=== PATIENT | male | born 1965 | race Hispanic/Latino ===

== ENCOUNTER 2017-06-03 06:23 | Emergency (ER) | payer BC ==
[~2017-06-03] VITALS: Ht 170.2 cm; Wt 73.5 kg
--- OUTSIDE RECORDS SUMMARY | 2017-06-03 06:26 | XMS REPORT ---
Author Author [facility] Address Unknown Phone Unavailable Care Team Providers Care Mergers And Acquisitions Banker Name Role Phone STEFANIE FRAGOSO Unavailable Unavailable Problems This patient has no known problems. Allergies, Adverse Reactions, Alerts This patient has no known allergies or adverse reactions. Medications This patient has no known medications. Results Test Description Test Time Test Comments Text Results Atomic Results Result Comments TACROLIMUS LEVEL 2017-03-03 08:50:00 TACROLIMUS BLOOD (BEAKER) (test jcws=842) 5.3 ng/mL 10.0-20.0 BASIC METABOLIC [id number] 01:21:00* Test Item Value Reference Range Comments SODIUM (BEAKER) (test krti=264) 136 meq/L 136-145 POTASSIUM (BEAKER) (test lgze=770) 4.6 meq/L 3.5-5.1 CHLORIDE (BEAKER) (test vpdb=163) 106 meq/L 98-107 CO2 (BEAKER) (test wzjy=888) 22 meq/L 22-29 BLOOD UREA NITROGEN (BEAKER) (test vdlk=372) 26 mg/dL 7-21 CREATININE (BEAKER) (test wmdx=824) 1.41 mg/dL 0.57-1.25 GLUCOSE RANDOM (BEAKER) (test xrjb=079) 112 mg/dL 70-105 CALCIUM (BEAKER) (test eocw=585) 9.8 mg/dL 8.4-10.2 EGFR (BEAKER) (test qtrp=3139) 53 mL/min/1.73 sq m ESTIMATED GFR IS NOT ACCURATE CREATININE CLEARANCE IN PREDICTING GLOMERULAR FILTRATION RATE. ESTIMATED GFR IS NOT APPLICABLE FOR DIALYSIS PATIENTS. CBC W/PLT COUNT & AUTO [id number] 01:04:00* Test Item Value Reference Range Comments WHITE BLOOD CELL COUNT (BEAKER) (test rlbi=507) 6.3 K/ L 3.5-10.5 RED BLOOD CELL COUNT (BEAKER) (test dykb=243) 4.73 M/ L 4.63-6.08 HEMOGLOBIN (BEAKER) (test xnxp=594) 13.9 GM/DL 13.7-17.5 HEMATOCRIT (BEAKER) (test znfa=113) 42.8 % 40.1-51.0 MEAN CORPUSCULAR VOLUME (BEAKER) (test lgrt=205) 90.5 fL 79.0-92.2 MEAN CORPUSCULAR HEMOGLOBIN (BEAKER) (test sagj=095) 29.4 pg 25.7-32.2 MEAN CORPUSCULAR HEMOGLOBIN CONC (BEAKER) (test hnhd=095) 32.5 GM/DL 32.3- 36.5 RED CELL DISTRIBUTION WIDTH (BEAKER) (test nifq=968) 13.5 % 11.6-14.4 PLATELET COUNT (BEAKER) (test ssam=257) 142 K/CU MM 150-450 MEAN PLATELET VOLUME (BEAKER) (test wkrl=199) 11.6 fL 9.4-12.4 NUCLEATED RED BLOOD CELLS (BEAKER) (test yswy=154) 0 /100 WBC 0-0 NEUTROPHILS RELATIVE PERCENT (BEAKER) (test ayos=431) 67 % LYMPHOCYTES RELATIVE PERCENT (BEAKER) (test bzoa=423) 19 % MONOCYTES RELATIVE PERCENT (BEAKER) (test tgya=525) 12 % EOSINOPHILS RELATIVE PERCENT (BEAKER) (test oqoo=534) 1 % BASOPHILS RELATIVE PERCENT (BEAKER) (test momn=661) 1 % NEUTROPHILS ABSOLUTE COUNT (BEAKER) (test lnaf=064) 4.24 K/ L 1.78-5.38 LYMPHOCYTES ABSOLUTE COUNT (BEAKER) (test gpyl=773) 1.19 K/ L 1.32-3.57 MONOCYTES ABSOLUTE COUNT (BEAKER) (test qhdn=011) 0.74 K/ L 0.30-0.82 EOSINOPHILS ABSOLUTE COUNT (BEAKER) (test nwwy=117) 0.07 K/ L 0.04-0.54 BASOPHILS ABSOLUTE COUNT (BEAKER) (test fsjx=175) 0.03 K/ L 0.01-0.08 IMMATURE GRANULOCYTES-RELATIVE PERCENT (BEAKER) (test mhgk=7415) 0 % 0-1
[2017-06-03] MEDS ORDERED: LEVAQUIN500 MG PO (07:52)
[2017-06-03] MEDS ORDERED: SENSIPAR30 MG PO (07:53)
[2017-06-03] MEDS ORDERED: MYFORTIC360 MG (07:53)
[2017-06-03] MEDS ORDERED: TEMAZEPAM15 MG (07:54)
[2017-06-03] MEDS ORDERED: TACROLIMUS1 MG PO (07:54)
[2017-06-03] MEDS ORDERED: OMEPRAZOLE40 MG (07:55)
[2017-06-03] MEDS ORDERED: LIPITOR20 MG (07:55)
[2017-06-03] MEDS ORDERED: LOSARTAN POTASS25 MG (07:55)
[2017-06-03] MEDS ORDERED: BUSPIRONE HCL5 MG PO (08:08)
[2017-06-03 08:33] VITALS: BP 150/80
== END 2017-06-03 08:30 | disposition home or self-care (01) ==
LOC: FSED 06:23
DX: R05 Cough (principal); J30.1 Allergic rhinitis due to pollen; I10 Essential (primary) hypertension
CPT/HCPCS: 99282

== ENCOUNTER 2017-10-13 13:34 | Emergency (ER) | payer BC ==
[~2017-10-13] VITALS: Ht 170.2 cm; Wt 74.8 kg
[~2017-10-13 13:34] MED LIST: BUSPIRONE HCL5 MG PO; LEVAQUIN500 MG PO; LIPITOR20 MG; LOSARTAN POTASS25 MG; MYFORTIC360 MG; OMEPRAZOLE40 MG; SENSIPAR30 MG PO; TACROLIMUS1 MG PO; TEMAZEPAM15 MG
[2017-10-13] MEDS ORDERED: ALBUTEROL0.63 MG/3 INH (14:58)
[2017-10-13] MEDS ORDERED: TESSALON PERLE100 MG PO (14:58)
[2017-10-13 15:06] VITALS: BP 140/72
== END 2017-10-13 15:11 | disposition home or self-care (01) ==
LOC: FSED 13:34
DX: R05 Cough (principal); J02.9 Acute pharyngitis, unspecified
CPT/HCPCS: 71046; 80053; 85025; 99283

== ENCOUNTER 2018-08-27 06:27 | Emergency (ER) | payer BC ==
[~2018-08-27] VITALS: Ht 170.2 cm; Wt 80.7 kg
[~2018-08-27 06:27] MED LIST changes: +ALBUTEROL0.63 MG/3 INH; +TESSALON PERLE100 MG PO
--- OUTSIDE RECORDS SUMMARY | 2018-08-27 06:30 | XMS REPORT | Clinical Summary ---
Author Author 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 Active cinacalcet (SENSIPAR) 30 Take 90 mg by 0 MG tablet mouth daily. Active folic acid (FOLVITE) 1 MG Take 1 mg by 0 tablet mouth daily. Active atorvastatin (LIPITOR) 20 Take 20 mg by 0 MG tablet mouth daily. Active aspirin 81 MG EC tablet Take 81 mg by 0 mouth daily. Active fluticasone-salmeterol Inhale 1 puff 0 (ADVAIR) 250-50 mcg/dose by mouth via diskus inhaler inhaler continuous prn. Active IPRATROPIUM/ALBUTEROL Inhale by 0 SULFATE (COMBIVENT INHL) mouth via inhaler. Active SENSIPAR 90 mg tablet 0 3 Active furosemide (LASIX) 40 MG 40 mg daily. 0 tablet 3 Active temazepam (RESTORIL) 15 Take 15 mg by 0 mg capsule mouth every night as needed for Sleep. Active tamsulosin (FLOMAX) 0.4 Take 0.4 mg 0 mg Cp24 24 hr capsule by mouth daily. Active omeprazole (PRILOSEC) 40 0 MG capsule 5 Active polyethylene glycol 0 (GLYCOLAX) 17 gram/dose 5 powder Active traMADol (ULTRAM) 50 mg 0 tablet 5 Active magnesium oxide (MAG-OX) Take 400 mg 0 400 mg tablet by mouth daily. Active docusate sodium (COLACE) Take 100 mg 0 100 MG capsule by mouth 2 (two) times daily. Active tacrolimus (PROGRAF) 1 MG Take 3 tabs 150 capsule capsule in AM, 2 tabs 5 in PM Active mycophenolate (MYFORTIC) Take 360 mg 0 360 MG TbECIndications: by mouth 2 Prevention of Kidney (two) times Transplant Rejection daily. Active Problems Problem Noted Date Renal contusion, left, initial encounter 03/03/2017 Pyelonephritis, acute 05/09/2014 ESRD (end stage renal disease) HTN (hypertension) Nephrosclerosis ALCL (anaplastic large cell lymphoma) PALOMA (obstructive sleep apnea) Asthma GERD (gastroesophageal reflux disease) Non-ischemic cardiomyopathy Social History Date Tobacco Use Types Packs/Day Years Used Never Smoker Smokeless Tobacco: Never Used Alcohol Use Drinks/Week oz/Week Comments Yes Sex Assigned at Date Recorded Not on file Industry Job Start Date Occupation Not on file Not on file Not on file Travel End Travel History Travel Start No recent travel history available. Last Filed Vital Signs Not on file Plan of Treatment Not on file Results Not on fileafter 08/26/2017 Insurance Payer Benefit Subscriber ID Type Phone Address Plan / Group MEDICARE MEDICARE A xxxxxxxxxx Medicare B BLUE CROSS/BLUE SHIELD BCBS FED xxxxxxxxx O [phone] [address] [place] [address] Advance Directives For more information, please contact: [facility] [address] [place] [address] Date Inactivated Comments Code Status Date Activated 03/03/2017 9:42 PM Full Code 03/03/2017 12:15 AM This code status was determined by: Patient 05/17/2014 3:37 PM Full Code 05/10/2014 12:14 AM This code status was determined by: Patient
== END 2018-08-27 07:13 | disposition home or self-care (01) ==
LOC: FSED 06:27
DX: H10.021 Other mucopurulent conjunctivitis, right eye (principal); Z88.5 Allergy status to narcotic agent; Z88.8 Allergy status to other drugs, medicaments and biological substances
CPT/HCPCS: 99283

== ENCOUNTER 2020-01-10 11:31 | Emergency (ER) | payer BC ==
[~2020-01-10] VITALS: Ht 170.2 cm; Wt 77.4 kg
[2020-01-10] MEDS ORDERED: ASPIRIN 325 MG TAB PO ONE (12:00)
[2020-01-10] MEDS ORDERED: ACETAMINOPHEN 325 MG TAB PO ONE (12:15)
[2020-01-10] MEDS ORDERED: NITROGLYCERIN 2% OINT 1 GM PKT TOP ONE ×2 (12:15→13:00)
[2020-01-10] MEDS ORDERED: FAMOTIDINE 20 MG/2 ML VIAL IV ONE (12:15)
[2020-01-10] MEDS ORDERED: NITROGLYCERIN 2% OINT 1 GM PKT ONE (12:15)
--- OUTSIDE RECORDS SUMMARY | 2020-01-10 12:40 | XMS REPORT | Clinical Summary ---
Author Author [facility] Address Unknown Phone Unavailable Care Team Providers Care Rn On Site Name Role Phone Pcp, No PCP Unavailable [...] (LASIX) 40 MG 40 mg daily. 0 02/10 tablet 3 Active temazepam (RESTORIL) 15 Take [...] 1 MG Take 3 tabs 150 capsule 11 capsule in AM, 2 tabs 5 in PM Additional Information Patient taking differently: 1 mg, Take 2 tabs in AM, 1 tabs in PM, Reported on 03/02/2017 11:58 PM Active mycophenolate (MYFORTIC) Take 360 mg 0 360 MG TbECIndications: by mouth 2 prevention of kidney (two) times transplant rejection daily. Active Problems Problem Noted Date Renal contusion, left, initial encounter 03/03/2017 Pyelonephritis, acute 05/09/2014 ESRD (end stage renal disease) HTN (hypertension) Nephrosclerosis ALCL (anaplastic large cell lymphoma) PALOMA (obstructive sleep apnea) Asthma GERD (gastroesophageal reflux disease) Non-ischemic cardiomyopathy Social History Date Tobacco Use Types Packs/Day Years Used Never Smoker Smokeless Tobacco: Never Used Drinks/Week oz/Week Comments Alcohol Use Yes Sex Assigned at Date Recorded Not on file Last Filed Vital Signs Not on file Plan of Treatment Not on file Results Not on fileafter 01/09/2019 Insurance Type Payer Benefit Subscriber ID Effective Phone Address Plan / Dates Group Medicare MEDICARE MEDICARE A [id number] 2005-P B resent PPO BLUE CROSS/BLUE SHIELD BCBS FED [id number] 2009-P [address] [place] [id number] Advance Directives For more information, please contact: [phone] Date Inactivated Comments Code Status Date Activated 03/03/2017 9:42 PM Full Code 03/03/2017 12:15 AM This code status was determined by: Patient 05/17/2014 3:37 PM Full Code 05/10/2014 12:14 AM This code status was determined by: Patient
--- OUTSIDE RECORDS SUMMARY | 2020-01-10 12:40 | XMS REPORT | Clinical Summary ---
Author Author [facility] Address Unknown Phone Unavailable Care Team Providers Care Tile Finisher Name Role Phone Asked, No Pcp PCP Unavailable Allergies Comments Active Allergy Reactions Severity Noted Date Lisinopril Swelling High 04/24/2012 Morphine Hives, High 01/13/2007 Unknown Reaction, Rash Medications End Date Status Medication Sig Dispensed Refills Start Date Active albuterol (PROAIR HFA) 90 INHALE 1 TO 2 0 02/22 mcg/actuation inhaler PUFFS PO Q 4 9 TO 6 H PRN Active aspirin (ASPIR-LOW) 81 MG Take by 0 09/22 enteric coated tablet mouth. 6 Active busPIRone (BUSPAR) 10 MG Take by 0 05/14 tablet mouth. 6 Active tacrolimus (PROGRAF) 1 MG Take by 0 04/25 capsule mouth. 5 Active temazepam (RESTORIL) 15 Take 15 mg by 0 mg capsule mouth. Active atorvastatin (LIPITOR) 20 Take 1 tablet 0 / MG tablet by mouth. 6 Active omeprazole (PriLOSEC) 40 Take 1 0 03/29 MG capsule capsule by 5 mouth. Active magnesium oxide (MAG-OX) Take 400 mg 0 09/14 400 mg (241.3 mg by mouth. 9 magnesium) tablet Active mycophenolate (MYFORTIC) Take by 0 06/06 360 MG tablet,delayed mouth. 6 release (DR/EC) EC tablet Active valsartan (DIOVAN) 160 MG Take 1 tablet 0 07/24 tablet by mouth. 9 Active Problems Not on file Encounters Care Team Description Date Type Specialty Khari Frausto MD CKD (chronic kidney disease) stage 5, GF R less than 15 ml/min (HCC) (Primary Dx) 05/04/2019 Office Visit Cardiovascular Khari Frausto MD PAD (peripheral artery disease) (HCC) (P rimary Dx) 04/30/2019 Orders Only Cardiovascular Rachel Erazo RN PAD (peripheral artery disease) (HCC) (P rimary Dx) 04/30/2019 Orders Only Cardiovascular Khari Frausto MD Numbness and tingling of right thumb (Pr imary Dx) 04/14/2019 Telephone Cardiovascular after 01/09/2019 Surgical History Surgery Date Site/Laterality Comments AV FISTULA PLACEMENT 03/24/2002 - 03/23/2003 TRANSPLANTATION, KIDNEY 03/24/2014 - 03/23/2015 Medical History Medical History Date Comments Chronic kidney disease Cancer (HCC) Family History Medical History Relation Name Comments Cancer Brother Diabetes Father Hypertension Father Relation Name Status Comments Brother Father Social History Date Tobacco Use Types Packs/Day Years Used Former Smoker Smokeless Tobacco: Never Used Drinks/Week oz/Week Comments Alcohol Use Yes Sex Assigned at Date Recorded Not on file Last Filed Vital Signs Reading Time Taken Comments Vital Sign 187/88 05/04/2019 11:27 AM [facility] Blood Pressure 62 05/04/2019 11:27 AM [facility] Pulse 36.8 C (98.3 F) 05/04/2019 11:27 AM [facility] Temperature - - Respiratory Rate 99% 05/04/2019 11:27 AM [facility] Oxygen Saturation - - Inhaled Oxygen Concentration 77.1 kg (170 lb) 05/04/2019 11:27 AM [facility] Weight 170.2 cm (5' 7") 05/04/2019 11:27 AM [facility] Height 26.63 05/04/2019 11:27 AM [facility] Body Mass Index Plan of Treatment Health Maintenance Due Date Last Done Comments COLONOSCOPY SCREENING 11/06/2015 SHINGLES VACCINES (#1) 11/06/2015 INFLUENZA VACCINE 10/23/2019 Procedures Comments Procedure Name Priority Date/Time Associated Diag nosis US DUPLEX ARTERIAL UPPER Routine 04/30/2019 Numbn ess and tingling of EXTREMITY BILATERAL 2:00 PM [employer] [facility] right thumb after 01/09/2019 Results * Us duplex arterial upper extremity (04/30/2019 2:00 PM [facility] [employer]) Specimen Narrative Performed At [facility] Upper Extremity Arterial Duplex Report [id number] [facility], [place] [address] Pat.Name: GAEL TERRY JR Pat.ID: [id number] St.Date: 04/30/2019 Refer.MD: KHARI FRAUSTO MD Exam Time: 12:41:00 PM Study Type:UE Arterial Age: 8 1965,53Y Sex: MALE Sonogrphr: Mary Fall RN, RVT CPT - 4: 49758 Echo Event ID:[id number] Order ID: [id number] Reason for Study:Numbness and tingling with intermittent discoloration of right thumb. Kidney transplant 2014. Multiple AV access bilateral arms. 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 History of lymphoma at age 25 yrs. SUMMARY: SEGMENTAL PRESSURE: RIGHT LEFT Brachial 152 158 Radial 158 156 Ulnar 167 156 Digit 78 67 DUPLEX SCAN OBSERVATIONS: RIGHT: There is smooth intimal lining i n the subclavian, axillary, brachial, ulnar and radial arteries. There is evidence of a previous AVF at the wrist level of the radial ar nafisa. Colorflow is undisturbed throughout all visualized arteries. PRELIMINARY FINDINGS: 1. No evidence of arterial insuffienc y of the right arm. PHYSICIAN INTERPRETATION: Arterial duplex examination of right upper extremity demonstrates no evidence of arterial occlusive disease. FINDINGS: MEASUREMENTS: DOPPLER Right Axillary Dist Axillary Dist P 72 cm/s Right P Subclavian Subclavian Prox 112 cm/s Right M Ulnar Ulnar Mid PSV 80 cm/s Right D Subclavian Subclavian Dist 116 cm/s Right P Ulnar Ulnar Prox PSV 73 cm/s Right Ulnar Dist 1 Ulnar Dist 1 PS 88 cm/s Right P Brachial Brachial Prox P 83 cm/s Right D Brachial Brachial Dist P 92 cm/s Right Radial Dist 1 Radial Dist 1 P 65 cm/s Right M Brachial Brachial Mid PS 95 cm/s Right Brachial Dist 1 Brachial Dist 1 88 cm/s Right M Radial Radial Mid PSV 73 cm/s Right Radial Dist 2 Radial Dist 2 P 41 cm/s Right D Radial Radial Dist PSV 45 cm/s Right Axillary Prox Axillary Prox P 78 cm/s Right P Radial Radial Prox PSV 63 cm/s Signed 05/01/2019 11:15 AM Satya Mustafa MD, FACS, RPVI Procedure Note Interface, Radiology Results In - 05/01/2019 11:16 AM [facility] Upper Extremity Arterial Duplex Report [id number] [place] [address] Pat.Name: GAEL TERRY Pat.ID: [id number] .Date: 04/30/2019 Refer.MD: KHARI FRAUSTO MD Exam Time: 12:41:00 PM Study Type:UE Arterial Age: 8 1965,53Y Sex: MALE Sonogrphr: Mary Fall RN, RVT CPT - 4: 16989 Echo Event ID:[id number] Order ID: [id number] Reason for Study:Numbness and tingling with intermittent discoloration of right thumb. Kidney transplant 2014. Multiple AV access bilateral arms. 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 History of lymphoma at age 25 yrs. SUMMARY: SEGMENTAL PRESSURE: RIGHT LEFT Brachial 152 158 Radial 158 156 Ulnar 167 156 Digit 78 67 DUPLEX SCAN OBSERVATIONS: RIGHT: There is smooth intimal lining in the subclavian, axillary, brachial, ulnar and radial arteries. There is evidence of a previous AVF at the wrist level of the radial artery. Colorflow is undisturbed throughout all visualized arteries. PRELIMINARY FINDINGS: 1. No evidence of arterial insuffiency of the right arm. PHYSICIAN INTERPRETATION: Arterial duplex examination of right upper extremity demonstrates no evidence of arterial occlusive disease. FINDINGS: MEASUREMENTS: DOPPLER Right Axillary Dist Axillary Dist P 72 cm/s Right P Subclavian Subclavian Prox 112 cm/s Right M Ulnar Ulnar Mid PSV 80 cm/s Right D Subclavian Subclavian Dist 116 cm/s Right P Ulnar Ulnar Prox PSV 73 cm/s Right Ulnar Dist 1 Ulnar Dist 1 PS 88 cm/s Right P Brachial Brachial Prox P 83 cm/s Right D Brachial Brachial Dist P 92 cm/s Right Radial Dist 1 Radial Dist 1 P 65 cm/s Right M Brachial Brachial Mid PS 95 cm/s Right Brachial Dist 1 Brachial Dist 1 88 cm/s Right M Radial Radial Mid PSV 73 cm/s Right Radial Dist 2 Radial Dist 2 P 41 cm/s Right D Radial Radial Dist PSV 45 cm/s Right Axillary Prox Axillary Prox P 78 cm/s Right P Radial Radial Prox PSV 63 cm/s Signed 05/01/2019 11:15 AM Satya Mustafa MD, FACS, RPVI Performing Organization Address City/State/ZIP Code [facility] [address] [place] [address] after 01/09/2019 Insurance Type Payer Benefit Subscriber ID Effective Phone Address Plan / Dates Group PPO BCBS BCBS [id number] 2009-P CHOICE [employer]ory PPO/[place]ILTON [place] PPO [phone] Advance Directives For more information, please contact: [phone] Patient Electrician Wiring Explanation Type Date Recorded Advance Directives, Living Will and Medical Power of Poultry Feed Supervisor
--- OUTSIDE RECORDS SUMMARY | 2020-01-10 12:40 | XMS REPORT | Continuity of Care Document ---
Author Author [facility] t Organization [facility] Address 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 Problems Condition Name Condition Details Condition Category Status Onset Date Resolution Date Last Treatment Date Treating Clinician Comments Source Renal contusion, left, initial encounter Renal contusi on, left, initial encounter Disease Active 2017-03-03 00:00:00 I [facility] Pyelonephritis, acute Pyelonephritis, acute Disease Active 201 07-24-15 00:00:00 [facility] ESRD (end stage renal disease) ESRD (end stage renal disease) Disease Active [facility] HTN (hypertension) HTN (hypertension) Disease Active [facility] Nephrosclerosis Nephrosclerosis Disease Active [facility] ALCL (anaplastic large cell lymphoma) ALCL (anaplastic large cell lymphoma) Disease Active [facility] PALOMA (obstructive sleep apnea) PALOMA (obstructive sleep apnea) Disease Active [facility] Asthma Asthma Disease Active [facility] GERD (gastroesophageal reflux disease) GERD (gastroesophagea l reflux disease) Disease Active [facility] Non-ischemic cardiomyopathy Non-ischemic cardiomyopathy Disease Active [facility] Allergies, Adverse Reactions, Alerts Allergy Name Allergy Type Status Severity Reaction(s) Onset Date Inacti ve Date Treating Clinician Comments Source Lisinopril Allergy to Substance Active Severe ANAPHYLAXIS 2017-06-03 0 0:00:00 [facility] Morphine Allergy to Substance Active Moderate HIVES 2017-06-03 00:00:00 [facility] Lisinopril Drug Allergy Active Swelling 2012-04-24 00:00:00 [facility] Morphine Drug Allergy Active Hives 2012-04-24 00:00:00 [facility] Lisinopril Propensity to adverse reactions to drug Active Swelling 2012-04-24 00:00:00 Ji ochoa Morphine Propensity to adverse reactions to drug Active Hives, Unknown Reaction, Rash 2007-01-13 00:00:00 Josef Valdez Family History Family Member Diagnosis Comments Start Date Stop Date Source Natural brother Cancer [facility] ethodist Natural father Diabetes [facility] thodist Natural father Hypertension Ji Valdez Social History Social Habit Start Date Stop Date Quantity Comments Source Sex Assigned At Elias Valdez Tobacco use and exposure 2019-05-04 00:00:00 2019-05-04 00:00:00 Christel smith used Ji Valdez Alcohol intake 2019-05-04 00:00:00 2019-05-04 00:00:00 Current drinker of alcohol (finding) Ji Valdez Smoking Status Start Date Stop Date Source Former smoker 2019-05-04 00:00:00 2019-05-04 00:00:00 Ji Valdez Never smoker [facility] Medications Ordered Medication Name Filled Medication Name Start Date Stop Da te Current Medication? Ordering Clinician Indication Dosage Frequency Signature (SIG) Comments Components Source temazepam (RESTORIL) 15 mg capsule 2019-05-04 11:30:14 Yes 15mg Take 15 mg by mouth. Ji Valdez albuterol (PROAIR HFA) 90 mcg/actuation inhaler 2019-03-19 00:00 :00 Yes INHALE 1 TO 2 PUFFS PO Q 4 TO 6 H PRN Ji Valdez magnesium oxide (MAG-OX) 400 mg (241.3 mg magnesium) tablet 2018-09-14 00:00:00 Yes 400mg Take 400 mg by mouth. Ji Valdez valsartan (DIOVAN) 160 MG tablet 2018-08-21 00:00:00 Yes 1{tbl} Take 1 tablet by mouth. Ji Valdez Albuterol Sulfate 0.63 Mg/3 Ml Vial.[facility] Albuterol Sulfate 0. 63 Mg/3 Ml Vial.neb 2017-10-13 00:00:00 Yes Earnest Salguero Md 2 Every 4 Hours as needed for Cough [facility] Benzonatate (Tessalon Perle) 100 Mg Capsule Benzonatat e (Tessalon Perle) 100 Mg Capsule 2017-10-13 00:00:00 Yes Earnest Salguero Md Three Times A Day as needed for Cough [facility] lansoprazole (PREVACID) 30 MG capsule 2017-03-03 19:42:48 Y es 30mg QD Take 30 mg by mouth daily. [facility] cinacalcet (SENSIPAR) 30 MG tablet 2017-03-03 19:42:48 Yes 90mg QD Take 90 mg by mouth daily. [facility] folic acid (FOLVITE) 1 MG tablet 2017-03-03 19:42:48 Yes 1mg QD Take 1 mg by mouth daily. [facility] atorvastatin (LIPITOR) 20 MG tablet 2017-03-03 19:42:48 Yes 20mg QD Take 20 mg by mouth daily. [facility] aspirin 81 MG EC tablet 2017-03-03 19:42:48 Yes 81mg QD Take 81 mg by mouth daily. [facility] fluticasone-salmeterol (ADVAIR) 250-50 mcg/dose diskus inhal er 2017-03-03 19:42:48 Yes 1{puff} Inhale 1 puff by mouth via [facility] SULFATE (COMBIVENT INHL) 2017-03-03 19:42: 48 Yes Inhale by mouth via inhaler. [facility] temazepam (RESTORIL) 15 mg capsule 2017-03-03 19:42:48 Yes 15mg Take 15 mg by mouth every night as needed for Sleep. [facility] tamsulosin (FLOMAX) 0.4 mg Cp24 24 hr capsule 2017-03-03 19:42:4 8 Yes .4mg QD Take 0.4 mg by mouth daily. [facility] magnesium oxide (MAG-OX) 400 mg tablet 2017-03-03 19:42:48 Yes 400mg QD Take 400 mg by mouth daily. [facility] docusate sodium (COLACE) 100 MG capsule 2017-03-03 19:42:48 Yes 100mg Q.5D Take 100 mg by mouth 2 (two) times daily. [facility] mycophenolate (MYFORTIC) 360 MG TbEC 2017-03-03 19:42:48 Yes prevention of kidney transplant rejection 360mg Q.5D Take 360 mg by mouth 2 (two) times daily. [facility] aspirin (ASPIR-LOW) 81 MG enteric coated tablet 2015-10-18 00:00 :00 Yes Take by mouth. Ji barone mycophenolate (MYFORTIC) 360 MG tablet,delayed release (DR/E C) EC tablet 2015-06-07 00:00:00 Yes Take by mouth. Ji Valdez atorvastatin (LIPITOR) 20 MG tablet 2015-06-06 00:00:00 Yes 1{tbl} Take 1 tablet by mouth. Ji ochoa busPIRone (BUSPAR) 10 MG tablet 2015-05-14 00:00:00 Yes Take by mouth. Ji Valdez tacrolimus (PROGRAF) 1 MG capsule 2014-05-17 00:00:00 Yes Take 3 tabs in AM, 2 tabs in PM [facility] tacrolimus (PROGRAF) 1 MG capsule 2014-05-17 00:00:00 Yes Take by mouth. Ji Valdez omeprazole (PRILOSEC) 40 MG capsule 2014-03-29 00:00:00 Yes [facility] omeprazole (PriLOSEC) 40 MG capsule 2014-03-29 00:00:00 Yes 1{capsule} Take 1 capsule by mouth. Ji Valdez polyethylene glycol (GLYCOLAX) 17 gram/dose powder 2014-03 00:00:00 Yes [facility] traMADol (ULTRAM) 50 mg tablet 2014-03-24 00:00:00 Yes [facility] SENSIPAR 90 mg tablet 2013-03-02 00:00:00 Yes [facility] furosemide (LASIX) 40 MG tablet 2013-02-10 00:00:00 Yes 40mg QD 40 mg daily. [facility] Atorvastatin Calcium (Lipitor) 20 Mg Tablet Atorvastat in Calcium (Lipitor) 20 Mg Tablet Yes [address] [facility] Buspirone Hcl 5 Mg Tablet Buspirone Hcl 5 Mg Tablet Yes 5 Twice A Day [facility] Cinacalcet Hcl (Sensipar) 30 Mg Tablet Cinacalcet Hcl (Sensipar) 30 Mg Tablet Yes [address] [facility] Levofloxacin (Levaquin) 500 Mg Tablet Levofloxacin (Levaquin) 500 M g Tablet Yes Daily [facility] Losartan Potassium 25 Mg Tablet Losartan Potassium 25 Mg Tablet Yes [facility] Mycophenolate Sodium (Myfortic) 360 Mg Tablet. Mycop henolate Sodium (Myfortic) [address] [facility] Omeprazole 40 Mg Capsule. Omeprazole [address] [facility] Tacrolimus 1 Mg Capsule Tacrolimus 1 Mg Capsule Yes [address] [facility] Temazepam 15 Mg Capsule Temazepam [address] [facility] Vital Signs Vital Name Observation Time Observation Value Comments Source Systolic blood pressure 2019-05-04 11:27:00 187 mm[Hg] Ji Valdez Diastolic blood pressure 2019-05-04 11:27:00 88 mm[Hg] Ji Valdez Heart rate 2019-05-04 11:27:00 62 /min Ji Valdez Body temperature 2019-05-04 11:27:00 36.83 Camille [place] José Miguel Body height 2019-05-04 11:27:00 170.2 cm Ji Valdez Body weight 2019-05-04 11:27:00 77.111 kg Ji Valdez BMI 2019-05-04 11:27:00 26.63 kg/m2 Ji Valdez Oxygen saturation in Arterial blood by Pulse oximetry 05-04 11:27:00 99 /min Ji Valdez Procedures Procedure Date / Time Performed Performing Clinician Sourc e US DUPLEX ARTERIAL UPPER EXTREMITY BILATERAL 2019-04-30 14:0 0:00 Alfred Du Ji Valdez Plan of Care Planned Activity Planned Date Details Comments Source Future Scheduled Test 2019-10-23 00:00:00 INFLUENZA VACCINE [code = INFLUENZA VACCINE] Ji Valdez Future Scheduled Test 2015-11-06 00:00:00 COLONOSCOPY SCREEN ING [code = COLONOSCOPY SCREENING] Ji Valdez Future Scheduled Test 2015-11-06 00:00:00 SHINGLES VACCINES (#1) [code = SHINGLES VACCINES (#1)] Ji Valdez Encounters Start Date/Time End Date/Time Encounter Type Admission Type Attendi [facility] Facility Care Department Encounter ID Source 2019-05-07 08:58:12 2019-05-07 11:24:01 Office Visit Kriss Bey [facility] [id number] 2019-03-19 08:08:00 2019-03-19 09:28:00 Departed Emergency Room 1 NATIVIDAD HUGHES [facility] [id number] [facility] 2018-08-27 06:27:00 2018-08-27 07:13:00 Departed Emergency Room [facility] [id number] [facility] 2017-10-13 13:34:00 2017-10-13 15:11:00 Departed Emergency Room [facility] [id number] [facility] Patients [facility] 2017-06-03 06:23:00 2017-06-03 08:30:00 Departed Emergency Room [facility] [id number] [facility] Results Test Description Test Time Test Comments Results Result Comments Source CXR 2 VIEW - HOPD 2019-03-19 08:43:00 [facility] [address] [address] Patient Name: MICHAEL TERRY JR MR #: [id number] : 1965 Age/Sex: 53/M Req #: [id number] Adm Physician: Ordered by: NATIVIDAD HUGHES DO Report #: [id number] Location: [facility] Room/Bed: Procedure: [id number] HOPD/CXR 2 [facility] Exam Date: 03/19/19 Exam Time: 0840 REPORT STATUS: Signed Chest, PA and lateral. History: Cough. Comparison: None available. Discussion: The cardiomediastinal silhouette and pulmonary vasculature are within normal limits. The lungs are clear without evidence of consolidation or effusion. There are no acute osseous abnormalities. IMPRESSION: No radiographic evidence of acute cardiopulmonary abnormality. Signed by: Ebenezer Le MD on 03/19/2019 8:44 AM Dictated By: EBENEZER LE MD 3 Transcribed By: RAIN on 03/19/19843 COPY TO: NATIVIDAD HUGHES DO TACROLIMUS LEVEL 2017-03-03 08:50:00 Test Item TACROLIMUS BLOOD (BEAKER) (test code = 657) 5.3 ng/mL 10.0-20.0 L BASIC METABOLIC [id number] 01:21:00* Test Item Value Reference Range Interpretation Comments SODIUM (BEAKER) (test code = 381) 136 meq/L 136-145 POTASSIUM (BEAKER) (test code = 379) 4.6 meq/L 3.5-5.1 CHLORIDE (BEAKER) (test code = 382) 106 meq/L 98-107 CO2 (BEAKER) (test code = 355) 22 meq/L 22-29 BLOOD UREA NITROGEN (BEAKER) (test code = 354) 26 mg/dL 7-21 H CREATININE (BEAKER) (test code = 358) 1.41 mg/dL 0.57-1.25 H GLUCOSE RANDOM (BEAKER) (test code = 652) 112 mg/dL 70-105 H CALCIUM (BEAKER) (test code = 697) 9.8 mg/dL 8.4-10.2 EGFR (BEAKER) (test code = 1092) 53 mL/min/1.73 sq m ESTIMATED GFR IS NOT ACCURATE CREATININE CLEARANCE IN PREDICTING GLOMERULAR FILTRATION RATE. ESTIMATED GFR IS NOT APPLICABLE FOR DIALYSIS PATIENTS. CBC W/PLT COUNT & AUTO [id number] 01:04:00* Test Item Value Reference Range Interpretation Comments WHITE BLOOD CELL COUNT (BEAKER) (test code = 775) 6.3 K/ L 3.5- 10.5 RED BLOOD CELL COUNT (BEAKER) (test code = 761) 4.73 M/ L 4.63-6 .08 HEMOGLOBIN (BEAKER) (test code = 410) 13.9 GM/DL 13.7-17.5 HEMATOCRIT (BEAKER) (test code = 411) 42.8 % 40.1-51.0 MEAN CORPUSCULAR VOLUME (BEAKER) (test code = 753) 90.5 fL 79. 0-92.2 MEAN CORPUSCULAR HEMOGLOBIN (BEAKER) (test code = 751) 29.4 pg 25.7-32.2 MEAN CORPUSCULAR HEMOGLOBIN CONC (BEAKER) (test code = 752) 32.5 GM/DL 32.3-36.5 RED CELL DISTRIBUTION WIDTH (BEAKER) (test code = 412) 13.5 % 11.6-14.4 PLATELET COUNT (BEAKER) (test code = 756) 142 K/CU MM 150-450 L MEAN PLATELET VOLUME (BEAKER) (test code = 754) 11.6 fL 9.4-12 .4 NUCLEATED RED BLOOD CELLS (BEAKER) (test code = 413) 0 /100 WBC 0 -0 NEUTROPHILS RELATIVE PERCENT (BEAKER) (test code = 429) 67 % LYMPHOCYTES RELATIVE PERCENT (BEAKER) (test code = 430) 19 % MONOCYTES RELATIVE PERCENT (BEAKER) (test code = 431) 12 % EOSINOPHILS RELATIVE PERCENT (BEAKER) (test code = 432) 1 % BASOPHILS RELATIVE PERCENT (BEAKER) (test code = 437) 1 % NEUTROPHILS ABSOLUTE COUNT (BEAKER) (test code = 670) 4.24 K/ L 1.78-5.38 LYMPHOCYTES ABSOLUTE COUNT (BEAKER) (test code = 414) 1.19 K/ L 1.32-3.57 L MONOCYTES ABSOLUTE COUNT (BEAKER) (test code = 415) 0.74 K/ L 0. 30-0.82 EOSINOPHILS ABSOLUTE COUNT (BEAKER) (test code = 416) 0.07 K/ L 0.04-0.54 BASOPHILS ABSOLUTE COUNT (BEAKER) (test code = 417) 0.03 K/ L 0. 01-0.08 IMMATURE GRANULOCYTES-RELATIVE PERCENT (BEAKER) (test code = 2801) 0 % 0-1
--- NOTE | 2020-01-10 12:44 | Emergency Department Note ---
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 He went to work earlier today and apparently got disoriented and, diaphoresis, chest pain so the school called EMS. His arrived and declined the EMS service and she drove him to an urgent care which then sent pt to ER. His symptoms vefry much resolved on arrival. Engraver Rubber Required: No Onset (how long ago): hour(s) Radiation: Reports non-radiation Severity: moderate Onset quality: sudden Duration (how long): hour(s) Timing of current episode: intermittent Progression: improving Chronicity: new Relieving factors: none Exacerbating factors: none Associated symptoms: Reports chest pain, Reports diaphoresis, Reports malaise Treatments prior to arrival: none Previous service: other (took aspirin) Past Medical/Family History Physician Review I have reviewed the patient's past medical and family history. Any updates have been documented here. Past Medical History Recent Fever: No Clinical Suspicion of Infectio: No Past Medical History: Hypertension, CHF Other Medical History: CANCER-LYMPHOMA KIDNEY TRANSPLANT 2014 Past Surgical History: None Other Surgery: RIGHT KIDNEY TRANSPLANT R/T HTN AND CHEMO 20 YRS AGO DIALYSIS FISTULAS Social History Smoking Cessation: Never Smoker Alcohol Use: None Any Illegal Drug Use: No TB Exposure/Symptoms: No Physically hurt or threatened: No Other Last Tetanus: UNKNOWN Any Pre-Existing Lines (PICC,: No Is patient up to date on immun: No Review of Systems Review of Systems Constitutional: Reports as per HPI, Reports malaise EENTM: Reports no symptoms Cardiovascular: Reports chest pain Respiratory: Reports no symptoms Gastrointestinal: Reports no symptoms Genitourinary: Reports no symptoms Musculoskeletal: Reports no symptoms Integumentary: Reports no symptoms Neurological: Reports as per HPI, Reports headache, Reports other (AMS) Psychological: Reports no symptoms Endocrine: Reports no symptoms Hematological/Lymphatic: Reports no symptoms Physical Exam Related Data Allergies: Coded Allergies: lisinopril (Verified Allergy, Severe, ANAPHYLAXIS, 06/03/17) Penicillins (Verified Allergy, Intermediate, rash/hives, 01/10/20) morphine (Verified Allergy, Intermediate, HIVES, 06/03/17) Vital signs reviewed: Yes Physical Exam CONSTITUTIONAL Constitutional: Present well-developed, Present well-nourished, Present distressed HENT HENT: Present normocephalic, Present atraumatic, Present oropharynx c lear/moist, Present nose normal HENT L/R: Present left ext ear normal, Present right ext ear normal EYES Eyes: Reports PERRL, Reports conjunctivae normal NECK Neck: Present ROM normal PULMONARY Pulmonary: Present effort normal, Present breath sounds normal CARDIOVASCULAR Cardiovascular: Present regular rhythm, Present heart sounds normal, Present capillary refill normal, Present normal rate GASTROINTESTINAL Abdominal: Present soft, Present nontender, Present bowel sounds normal GENITOURINARY Genitourinary: Present exam deferred SKIN Skin: Present warm, Present dry, Present other (old fistula noted left arm) MUSCULOSKELETAL Musculoskeletal: Present ROM normal NEUROLOGICAL Neurological: Present alert, Present oriented x 3, Present no gross motor or sensory deficits PSYCHOLOGICAL Psychological: Present mood/affect normal, Present judgement normal Results Laboratory Lab results reviewed: Yes Laboratory comments Cr 1.8, k 5.1, CBC OK Imaging Imaging results reviewed: Yes Imaging Comments Ct head no acute, chest Xray normal Procedures 12 Lead ECG Interpretation ECG Interpretation : ECG: ECG 1 Engraver Rubber: Interpreted by ED physician Date: Jan 10, 2020 Time: 11:51 Prior ECG tracings: reviewed Rhythm: sinus bradycardia Rate: normal BPM: 59 QRS axis: left Clinical Impression: abnormal ECG Additional Comments LVH Critical Care Time Time ED Physician saw patient: 13:00 Critical care time exclusive o: separately billable procedures Critcal care necessary due to: other (Critical care for ACS treated with Aspirin, Nitropaste, and Lovenox. Time includes initial assessment and multiple reassessments, discussion of patient condition and plans of care with patient and family, with attending, writing orders, reviewing results and documenting medical record. ) Assessment & Plan Medical Decision Making MDM ACS, TIA, CVA, electrolytes abnormality Reassessment Reassessment time: 14:25 Reassessment improving Assessment & Plan Final Impression: (1) Acute coronary syndrome (2) AMS (altered mental status) (3) TIA (transient ischemic attack) Depart Disposition: DIS/[facility] Home Meds Active Scripts Albuterol Sulfate (ALBUTEROL SULFATE) 0.63 Mg/3 Ml Vial.neb, 2 SPRAYS INH Q4H PRN for COUGH, #1 INH 0 Refills Prov:SUZETTE RATLIFF MD 10/13/17 Reported Medications Docusate Sodium (COLACE) 100 Mg Cap, 100 MG PO DAILY, #30 CAP 01/10/20 Aspirin (ASPIRIN EC) 81 Mg Tablet.dr, 81 MG PO DAILY, #30 TAB 01/10/20 Magnesium Oxide (MAGOX 400) 400 Mg Tablet, 400 MG PO DAILY, TAB 01/10/20 Buspirone Hcl (BUSPIRONE HCL) 5 Mg Tablet, 10 MG PO HS, #60 TAB take 2 tabs at bedtime 06/03/17 Atorvastatin Calcium (LIPITOR) 20 Mg Tablet, 20 MG DAILY, #30 TAB 06/03/17 Omeprazole (OMEPRAZOLE) 40 Mg Capsule.dr, 40 MG DAILY 06/03/17 Tacrolimus (TACROLIMUS) 1 Mg Capsule, 1 MG PO BID, #30 CAP take 2 tabs in am and 1 tab in pm 06/03/17 Temazepam (TEMAZEPAM) 15 Mg Capsule, 15 MG DAILY 06/03/17 Mycophenolate Sodium (MYFORTIC) 360 Mg Tablet.dr, 360 MG BID take 2 tabs in am and 1 tab in pm 06/03/17 Discontinued Reported Medications Losartan Potassium (LOSARTAN POTASSIUM) 25 Mg Tablet 06/03/17 Cinacalcet Hcl (SENSIPAR) 30 Mg Tablet, 30 MG PO DAILY, #30 TAB 06/03/17 Levofloxacin (LEVAQUIN) 500 Mg Tablet, PO DAILY, TAB 06/03/17 Discontinued Scripts Benzonatate (TESSALON PERLE) 100 Mg Capsule, 1-2 CAP PO TID PRN for COUGH, #30 CAP 0 Refills Prov:SUZETTE RATLIFF MD 10/13/17 Medications in the ED Lovenox 60 mg SQ (renal dose) Aspirin 325 mg ONCE ONCE PO ; Start 01/10/20 at 12:00; Stop 01/10/20 at 12:18; Status DC Nitroglycerin 1 gm ONCE ONCE TOP ; Start 01/10/20 at 12:15; Stop 01/10/20 at 12:16; Status DC Acetaminophen 650 mg ONCE ONCE PO ; Start 01/10/20 at 12:15; Stop 01/10/20 at 12:17; Status DC Nitroglycerin 2 gm STK-MED ONCE .ROUTE ; Start 01/10/20 at 12:15; Stop 01/10/20 at 12:08; Status DC Famotidine 20 mg STK-MED ONCE IV ; Start 01/10/20 at 12:15; Stop 01/10/20 at 12:08; Status DC Physician Attestation Provider Attestation Patient would like to transferred to [facility] where all of his doctors located. Case discussed with Dr Penaloza, [facility]. GT RUIZ MD Jan 10, 2020 12:44
[2020-01-10] MEDS ORDERED: ASPIRIN 81 MG CHEW TAB ONE (12:51)
[2020-01-10] MEDS ORDERED: MAGOX 400400 MG PO (12:52)
[2020-01-10] MEDS ORDERED: COLACE100 MG PO (12:52)
[2020-01-10] MEDS ORDERED: ASPIRIN EC81 MG PO (12:52)
--- NOTE | 2020-01-10 13:14 | Diagnostic Imaging Report ---
Exam: CXR 2 VIEW - HOPD Date: 01/10/2020 1:10 PM INDICATION: ^chest pain Comparison: 03/19/2019 FINDINGS: Lines/Tubes:None Lungs:The lungs are well inflated. No focal consolidation or pulmonary edema. Pleura:No pleural effusion. No pneumothorax. Heart/Mediastinum:The cardiomediastinal silhouette is normal in size and contour. Bones/Soft Tissues: No acute osseous abnormality. Upper abdomen: Unremarkable. IMPRESSION: Stable exam without acute intrathoracic process. Signed by: Sean Woo MD on 01/10/2020 1:11 PM
--- NOTE | 2020-01-10 13:42 | NUR ---
[facility]
--- NOTE | 2020-01-10 13:44 | Diagnostic Imaging Report ---
CT BRAIN -[facility] HISTORY: Confusion COMPARISON: None. TECHNIQUE: Noncontrast axial scans were obtained from skull base to the vertex. Coronal and sagittal reconstructions obtained from the axial data. One or more of the following dose reduction techniques were used: Automated exposure control, adjustment of the mA and/or kV according to patient size, and/or utilization of iterative reconstruction technique. Motion and beam hardening artifacts obscure some details. DISCUSSION: Scalp/Skull: Unremarkable. Brain sulci: Appropriate for patient's age. Ventricles: Normal in size and configuration. No hydrocephalus. Extra-axial spaces: No masses or fluid collections. Carotid siphon calcifications are present. Parenchyma: Mild periventricular white matter hypodensities are likely chronic microvascular ischemic changes. Otherwise, no mass, hemorrhage, or large vascular territory acute infarct. Dural sinuses: No abnormal densities. Sellar/Suprasellar region: Intact. Skull base: Intact. Incidental findings: None. IMPRESSION: 1. No acute intracranial abnormalities. 2. Mild supratentorial chronic microvascular ischemic change. Signed by: Dr. Brody Stacy M.D. on 01/10/2020 1:41 PM
--- NOTE | 2020-01-10 14:20 | NUR ---
Acceptance by Faviola Hull RN coordinator and Dr. Flo Stroud report to be called to room 951 @ [phone] fax face sheet and MOT to [phone]
--- NOTE | 2020-01-10 14:20 | NUR ---
Contacted [facility] to transport pt to [facility]
[2020-01-10 14:35] VITALS: BP 155/85
[2020-01-10] MEDS ORDERED: ENOXAPARIN SOD INJ 60 MG/0.6 ML SYR SC STA (14:48)
--- NOTE | 2020-01-10 15:00 | NUR ---
Pt left with [facility]
[2020-01-10] MEDS ORDERED: ENOXAPARIN SODIUM INJ 100 MG/ML SYR SC ONE (15:01)
--- NOTE | 2020-01-10 15:05 | NUR ---
Report given to DWIGHT Mitchell
== END 2020-01-10 15:00 | disposition short-term general hospital (02) ==
LOC: FSED 12:09
DX: I24.9 Acute ischemic heart disease, unspecified (principal); R41.82 Altered mental status, unspecified; G45.9 Transient cerebral ischemic attack, unspecified; R07.89 Other chest pain
CPT/HCPCS: 70450; 71046; 80053; 82553; 84484; 85025; 85379; 93005; 96372; 96374; 99284; J1650

== ENCOUNTER 2021-05-03 07:10 | Emergency (ER) | payer BC ==
[~2021-05-03] VITALS: Ht 170.2 cm; Wt 77.1 kg
[~2021-05-03 07:10] MED LIST changes: +ASPIRIN EC81 MG PO; +COLACE100 MG PO; +MAGOX 400400 MG PO
[2021-05-03] MEDS ORDERED: VENTOLIN HFA18 GM INH (08:19)
[2021-05-03] MEDS ORDERED: PREDNISONE20 MG PO (08:26)
[2021-05-03] MEDS ORDERED: PREDNISONE 20 MG TAB ONE (08:38)
[2021-05-03] MEDS ORDERED: PREDNISONE 20 MG TAB PO ONE (09:15)
== END 2021-05-03 09:10 | disposition home or self-care (01) ==
LOC: FSED 08:00
DX: J44.1 Chronic obstructive pulmonary disease with (acute) exacerbation (principal); R06.02 Shortness of breath; R05.9 Cough, unspecified; E78.5 Hyperlipidemia, unspecified; K21.9 Gastro-esophageal reflux disease without esophagitis; Z94.0 Kidney transplant status; F17.210 Nicotine dependence, cigarettes, uncomplicated; Z20.822 Contact with and (suspected) exposure to COVID-19
CPT/HCPCS: 71046; 99282; J7512; U0002